=== PATIENT | female | born 1945 | race Caucasian/White ===

== ENCOUNTER 2021-03-30 04:24 | Emergency (ER) | payer MEDICARE ==
[~2021-03-30] VITALS: Ht 158.8 cm; Wt 63.0 kg
--- NOTE | 2021-03-30 04:24 | NUR ---
assessment made. seen by ERP. IV placed. blood drawn. EKG done. patient denies CP/ SOB
[2021-03-30] MEDS ORDERED: ASPIRIN 325 MG TABLET PO STA (04:28)
[2021-03-30] MEDS ORDERED: MIDAZOLAM 1 MG/ML, 5ML ONE (04:29)
[2021-03-30] MEDS ORDERED: BIVALIRUDIN 250 MG ONE (04:29)
[2021-03-30] MEDS ORDERED: LIDOCAINE 1%, 20ML ONE (04:29)
[2021-03-30] MEDS ORDERED: FENTANYL PF 100 MCG/2ML ONE (04:29)
--- NOTE | 2021-03-30 04:32 | NUR ---
Code Cardiac called @ [id number] Code Cardiac canceled @ [id number]
--- NOTE | 2021-03-30 04:35 | NUR ---
code cardiac cancelled.
--- NOTE | 2021-03-30 04:53 | NUR ---
X ray done. patient alert and oriented.
[2021-03-30] MEDS ORDERED: LABETALOL 5MG/ML, 20ML ONE (04:55)
[2021-03-30] MEDS ORDERED: LABETALOL 5MG/ML, 20ML IVPush ONE (05:00)
[2021-03-30] MEDS ORDERED: PLEASE ENTER ALLERGIES MC SCH (05:00)
[2021-03-30] MEDS ORDERED: PLEASE ENTER HEIGHT AND WEIGHT MC SCH (05:00)
[2021-03-30 05:09] LABS: BASOPHILS % (AUTO) 1 % (0-1); EOSINOPHILS % (AUTO) 5 % (1-7); LYMPHOCYTES % (AUTO) 24 % (22-44); MEAN CORPUSCULAR HEMOGLOBIN 33.3 pg (27.0-34.8); MEAN CORPUSCULAR HGB CONC 33.9 g/dL (32.4-35.8); MONOCYTES % (AUTO) 13 % (2-9); NEUTROPHILS % (AUTO) 59 % (42-75); PLATELET COUNT 260 x10^3/uL (130-400); RED BLOOD COUNT 3.28 x10^6/uL (3.82-5.3); RED CELL DISTRIBUTION WIDTH 14.2 % (9.6-15.2)
[2021-03-30 05:10] LABS: MD NO
[2021-03-30 05:27] LABS: INTERNATIONAL NORMALIZED RATIO 0.94 (0.93-1.1); PROTHROMBIN TIME 10.1 Seconds (9.6-11.5)
[2021-03-30 05:31] LABS: ALANINE AMINOTRANSFERASE 45 U/L (12-78); ALBUMIN 3.3 g/dL (3.4-5.0); ANION GAP 9 mmol/L (5-15); CALCIUM 9.1 mg/dL (8.5-10.1); CHLORIDE 114 mmol/L (98-107); CREATININE 1.01 mg/dL (0.55-1.02)
[2021-03-30 05:35] LABS: ALKALINE PHOSPHATASE 169 U/L (45-117); BILIRUBIN,TOTAL 0.2 mg/dL (0.2-1.0); TOTAL PROTEIN 7.3 g/dL (6.4-8.2); TROPONIN I < 0.015 ng/mL (0.000-0.045)
[2021-03-30] MEDS ORDERED: ENAL10TA9 PO (05:37)
[2021-03-30] MEDS ORDERED: INSU100I13 SC (05:37)
[2021-03-30] MEDS ORDERED: ISOS30TA8 PO (05:37)
[2021-03-30] MEDS ORDERED: NITR0.4T28 SL (05:37)
[2021-03-30] MEDS ORDERED: MULT-826 PO (05:37)
[2021-03-30] MEDS ORDERED: OXCA300T19 PO (05:37)
[2021-03-30] MEDS ORDERED: AMLO-150 PO (05:37)
[2021-03-30] MEDS ORDERED: CHOL400C11 PO (05:37)
[2021-03-30] MEDS ORDERED: METO-95 PO (05:37)
[2021-03-30] MEDS ORDERED: ATOR-2 PO (05:37)
[2021-03-30] MEDS ORDERED: ASPI81TA45 PO (05:37)
[2021-03-30] MEDS ORDERED: sodium PO (05:39)
--- NOTE | 2021-03-30 06:24 | NUR ---
PT RESTING IN BED BILATERAL CHEST RISE AND FALL VSS. NAD. RAILS UP ON GURNEY X2.
--- NOTE | 2021-03-30 07:21 | NUR ---
[facility]
[2021-03-30 08:18] VITALS: BP 162/59
--- NOTE | 2021-03-30 08:26 | NUR ---
PT REC'VD DISCHARGE INSTRUCTIONS AND EDUCATION. NO FURTHER QUESTIONS. PT AMBULATED TO DC AREA, STEADY GAIT.
== END 2021-03-30 09:07 | disposition home or self-care (01) ==
LOC: ED 06:39
DX: R53.1 Weakness (principal); I10 Essential (primary) hypertension; R61 Generalized hyperhidrosis; R07.89 Other chest pain; E11.9 Type 2 diabetes mellitus without complications; I25.2 Old myocardial infarction
CPT/HCPCS: 36415; 71045; 80053; 84484; 85025; 85610; 85730; 93005; 96374; 99285; J0583; J2250; J3010; J3490